=== PATIENT | male | born 1955 | race Caucasian/White ===

== ENCOUNTER → 2020-05-23 | Outpatient (CLI) | payer MEDICARE ==
[~2020-05-23] MED LIST: ALLOPURINOL 10100 M1 PO; ALPHAGAN P10 ML OP; ASA81BEC; ATORVASTATIN CA40 MG PO; CARDURA4 MG; CENTRUM SILVER1 EAC2 PO; CLEOCIN HCL150 MG PO; COLACE100 MG PO; COREG6.25 MG PO; COZAAR100 MG PO; DUONEB 2.5-0.5 M3 ML INH; DYAZIDE 37.5-21 EACH PO; ECOTRIN325 MG PO; FENOFIBRATE200 MG PO; FLOMAX0.4 MG PO; GABAPENTIN100 MG PO; HYDRALAZINE HC100 MG; LANTUS SUBQ; LASIX 20 MG TAB20 MG; LEVAQUIN 500 M500 M4 PO; LIDODERM 5%1 PATC1 TRANSDERM; LUMIGAN2.5 M1; MACROBID 100 M100 M2 PO; MIRALAX17 GM PO; MIRALAX255 GM PO; NORCO 5-325 TA1 EACH PO; NOVOLOG FL100 UNIT/M SC; PERCOCET 7.5-31 EACH PO; PIOGLITAZONE15 MG PO; PREDNISONE 10 M10 MG PO; PREDNISONE 20 M20 MG PO; PULMICORT0.5 MG/22; SINGULAIR 10 MG10 M1; SYMBICORT80 MCG/4.1; TRANDATE 200 M200 M1 PO; TYLENOL325 MG PO; VITAMIN D2000 UNIT
== END ==
LOC: M.ULTRA 12:38
PROVIDERS: ATTEND Family Medicine
DX: M79.89 Other specified soft tissue disorders (principal)